=== PATIENT | male | born 1985 | race Caucasian/White ===

== ENCOUNTER → 2019-12-30 | Outpatient (CLI) | payer BC | END | disposition home or self-care (01) | LOC: LABWHC1 16:02 | PROVIDERS: ATTEND Internal Medicine | DX: Z20.828 Contact with and (suspected) exposure to other viral communicable diseases (principal) | CPT/HCPCS: U0003; C9803 ==

== ENCOUNTER 2020-04-22 14:46 | Emergency (ER) | payer BC ==
[2020-04-22 16:33] LABS: Basophils % (A) 1 %; Eosinophils % (A) 0 %; HGB 16.9 gm/dL (13.0-17.5); Lymphocytes # (A) 0.6 k/uL (1.0-4.8); Lymphocytes % (A) 18 %; MCH 30.1 pg (25.0-35.0); MCHC 34.6 g/dL (31.0-37.0); MCV 86.9 fL (80.0-100.0); Mean Platelet Volume 6.9; Monocytes # (A) 0.4 k/uL (0-1.0); Monocytes % (A) 11 %; Neutrophils # (A) 2.2 k/uL (1.3-7.7); Neutrophils % (A) 67 %; Platelet Count 171 k/uL (150-450); RBC 5.64 m/uL (4.30-5.90); RDW 12.4 % (11.5-15.5); WBC 3.2 k/uL (3.8-10.6)
[2020-04-22 16:53] LABS: ALT 69 U/L (4-49); AST 56 U/L (17-59); African American GFR (CKD) >90 (>60 ml/min/1.73 sqM); Albumin 4.9 g/dL (3.5-5.0); Alkaline Phosphatase 63 U/L (38-126); Anion Gap 12 mmol/L; Blood Urea Nitrogen 15 mg/dL (9-20); C Reactive Protein 8.4 mg/L (<10.0); Calcium 8.8 mg/dL (8.4-10.2); Carbon Dioxide 24 mmol/L (22-30); Chloride 97 mmol/L (98-107); Glucose 109 mg/dL (74-99); LDH 689 U/L (313-618); Magnesium 1.8 mg/dL (1.6-2.3); Non-African American GFR(CKD) >90 (>60 ml/min/1.73 sqM); Partial Thromboplastin Time 27.5 sec (22.0-30.0); Potassium 4.6 mmol/L (3.5-5.1); Prothrombin Time 10.9 sec (9.0-12.0); Sodium 133 mmol/L (137-145); Total Bilirubin 0.6 mg/dL (0.2-1.3); Total Protein 8.4 g/dL (6.3-8.2)
--- NOTE | 2020-04-22 17:02 | XR ---
EXAMINATION TYPE: XR chest 1V portable DATE OF EXAM: 04/22/2020 COMPARISON: NONE HISTORY: Difficulty breathing TECHNIQUE: 2 views FINDINGS: Heart and mediastinum are normal. Lungs are clear. Diaphragm is normal. Bony thorax appears normal. IMPRESSION: Normal chest.
[2020-04-22 17:11] LABS: D-Dimer 1.12 mg/L FEU (<0.60)
[2020-04-22] MEDS ORDERED: ACETAMINOPHEN TAB 500 MG TAB PO STA (17:33)
--- NOTE | 2020-04-22 18:29 | ED ---
SOB HPI - General Chief Complaint: Shortness of Breath Stated Complaint: [place], COVID + Source: patient Mode of arrival: ambulatory Limitations: no limitations - History of Present Illness Initial Comments: 35-year-old male with past nuchal history of asthma, well-controlled who pr esents emergency room with report called made. Patient began having symptoms and saw Dr. Segura. Prescribed azithromycin and prednisone. Patient went yesterday and was swabbed for covid where he received positive results. Has been using his nebulizer as directed without improvement. Patient reports shortness of breath. Denies chest pain. No history of DVT or PE. Last took Sudafed at 8 AM. Admits to fevers and chills. Positive for body aches. Denies any nausea, vomiting or diarrhea. No other alleviating, precipitating or modifying factors - Related Data Home Medications Medication Instructions Recorded Confirmed Albuterol Nebulized [Ventolin 2.5 mg INHALATION RT-Q4H PRN 04/22/20 04/22/20 Nebulized] Allergies Allergy/AdvReac Type Severity Reaction Status Date / Time animal dander Allergy Rash/Hives Verified 04/22/20 16:50 Review of Systems ROS Statement: Those systems with pertinent positive or pertinent negative responses have been documented in the HPI. ROS Other: All systems not noted in ROS Statement are negative. Past Medical History Past Medical History: Asthma, Sleep Apnea/CPAP/BIPAP History of Any Multi-Drug Resistant Organisms: None Reported Past Surgical History: No Surgical Hx Reported Past Psychological History: No Psychological Hx Reported Smoking Status: Never smoker Past Alcohol Use History: None Reported Past Drug Use History: None Reported General Exam Limitations: no limitations Course Vital Signs 04/22/20 04/22/20 04/22/20 15:23 16:26 17:00 Temperature 102.6 F H 102.5 F H Pulse Rate 101 H 87 Respiratory 19 18 18 Rate Blood Pressure 103/61 O2 Sat by Pulse 96 97 97 Oximetry 04/22/20 04/22/20 18:00 21:53 Temperature 99.4 F 98.4 F Pulse Rate 80 75 Respiratory 18 20 Rate Blood Pressure 125/64 129/69 O2 Sat by Pulse 97 96 Oximetry Medical Decision Making - Medical Decision Making Upon arrival patient is placed into room 10. A thorough history and physical exam is performed. Patient is up to continuous pulse ox and cardiac monitoring. Patient has never been intubated for his breathing. He normally uses his inhal er only when needed. Laboratory studies are conducted. Elevated d-dimer of 1.1. Covid is detected here. Patient is sent for a CTA of his chest which demonstrates no evidence of pulmonary embolism. Interstitial and patchy nodular infiltrate of the lungs. Patient does not demonstrate any hypoxia. He did agree to BAM infusion. Patient is to continue the last 2 days of his steroids. He uses nebulizer as needed every 4 hours. Follow up with his doctor in 2-4 days. Return to the emergency room for any new or worsening symptoms. Patient was discharged in stable condition - Lab Data Result diagrams: 04/22/20 16:24 04/22/20 16:24 Lab Results 04/22/20 04/22/20 04/22/20 Range/Units 16:24 16:24 16:24 WBC 3.2 L (3.8-10.6) k/uL RBC 5.64 (4.30-5.90) m/uL Hgb 16.9 (13.0-17.5) gm/dL Hct 49.0 (39.0-53.0) % MCV 86.9 (80.0-100.0) fL MCH 30.1 (25.0-35.0) pg MCHC 34.6 (31.0-37.0) g/dL RDW 12.4 (11.5-15.5) % Plt Count 171 (150-450) k/uL MPV 6.9 Neutrophils % 67 % Lymphocytes % 18 % Monocytes % 11 % Eosinophils % 0 % Basophils % 1 % Neutrophils # 2.2 (1.3-7.7) k/uL Lymphocytes # 0.6 L (1.0-4.8) k/uL Monocytes # 0.4 (0-1.0) k/uL Eosinophils # 0.0 (0-0.7) k/uL Basophils # 0.0 (0-0.2) k/uL PT 10.9 (9.0-12.0) sec INR 1.0 (<1.2) APTT 27.5 (22.0-30.0) sec D-Dimer 1.12 H (<0.60) mg/L FEU Sodium 133 L (137-145) mmol/L Potassium 4.6 (3.5-5.1) mmol/L Chloride 97 L (98-107) mmol/L Carbon Dioxide 24 (22-30) mmol/L Anion Gap 12 mmol/L BUN 15 (9-20) mg/dL Creatinine 0.97 (0.66-1.25) mg/dL Est GFR (CKD-EPI)AfAm >90 (>60 ml/min/1.73 sqM) Est GFR (CKD-EPI)NonAf >90 (>60 ml/min/1.73 sqM) Glucose 109 H (74-99) mg/dL Plasma Lactic Acid Hal (0.7-2.0) mmol/L Calcium 8.8 (8.4-10.2) mg/dL Magnesium 1.8 (1.6-2.3) mg/dL Total Bilirubin 0.6 (0.2-1.3) mg/dL AST 56 (17-59) U/L ALT 69 H (4-49) U/L Alkaline Phosphatase 63 (38-126) U/L Lactate Dehydrogenase 689 H (313-618) U/L C-Reactive Protein 8.4 (<10.0) mg/L Total Protein 8.4 H (6.3-8.2) g/dL Albumin 4.9 (3.5-5.0) g/dL Coronavirus (PCR) (Not Detectd) 04/22/20 04/22/20 Range/Units 16:24 16:24 WBC (3.8-10.6) k/uL RBC (4.30-5.90) m/uL Hgb (13.0-17.5) gm/dL Hct (39.0-53.0) % MCV (80.0-100.0) fL MCH (25.0-35.0) pg MCHC (31.0-37.0) g/dL RDW (11.5-15.5) % Plt Count (150-450) k/uL MPV Neutrophils % % Lymphocytes % % Monocytes % % Eosinophils % % Basophils % % Neutrophils # (1.3-7.7) k/uL Lymphocytes # (1.0-4.8) k/uL Monocytes # (0-1.0) k/uL Eosinophils # (0-0.7) k/uL Basophils # (0-0.2) k/uL PT (9.0-12.0) sec INR (<1.2) APTT (22.0-30.0) sec D-Dimer (<0.60) mg/L FEU Sodium (137-145) mmol/L Potassium (3.5-5.1) mmol/L Chloride (98-107) mmol/L Carbon Dioxide (22-30) mmol/L Anion Gap mmol/L BUN (9-20) mg/dL Creatinine (0.66-1.25) mg/dL Est GFR (CKD-EPI)AfAm (>60 ml/min/1.73 sqM) Est GFR (CKD-EPI)NonAf (>60 ml/min/1.73 sqM) Glucose (74-99) mg/dL Plasma Lactic Acid Hal 1.0 (0.7-2.0) mmol/L Calcium (8.4-10.2) mg/dL Magnesium (1.6-2.3) mg/dL Total Bilirubin (0.2-1.3) mg/dL AST (17-59) U/L ALT (4-49) U/L Alkaline Phosphatase (38-126) U/L Lactate Dehydrogenase (313-618) U/L C-Reactive Protein (<10.0) mg/L Total Protein (6.3-8.2) g/dL Albumin (3.5-5.0) g/dL Coronavirus (PCR) Detected A (Not Detectd) - EKG Data EKG Comments: EKG demonstrates a normal sinus rhythm with a ventricular rate of 93. Urine of 148. QRS 86. QTC of 407. No acute ST segment elevations or depressions concerning for ischemic changes Disposition Clinical Impression: COVID-19 Disposition: HOME SELF-CARE Condition: Stable Instructions (If sedation given, give patient instructions): Coronavirus Disease 2019 (COVID-19) Additional Instructions: Please follow up with your PCP in 2-4 days. Take the remaining 2 days of your prednisone. Use your nebulizer every 4 hours. Return to the ED for any new or worsening symptoms. Is patient prescribed a controlled substance at d/c from ED?: No Referrals: Morenita Segura MD [Primary Care Provider] - 1-2 days Time of Disposition: 19:41
--- NOTE | 2020-04-22 18:33 | CT ---
EXAMINATION TYPE: CT chest angio for PE DATE OF EXAM: 04/22/2020 COMPARISON: None HISTORY: Elevated d dimer, Covid + CT DLP: 869.4 mGycm Automated exposure control for dose reduction was used. CONTRAST: Performed with IV Contrast, patient injected with 100 mL of Isovue 370. Images obtained from the thoracic inlet to the diaphragm with IV contrast and 3-D post processed imag es. There is a diffuse nodular and interstitial infiltrate throughout the lungs. There are multiple low d ensity nodules that measure up to 1.5 cm. There is no mediastinal adenopathy. Thoracic aorta is intac t. There is no aneurysm or dissection. Heart is top normal in size. There is no pericardial effusion. There is no pleural effusion. There is some fatty infiltration of the liver. There is normal contrast opacification of the pulmonary arteries. Thoracic spine is intact. Sternum i s intact. IMPRESSION: No evidence of pulmonary embolism. Interstitial and patchy nodular infiltrate throughout the lungs. This is likely related to pneumonia. No cavitation seen to suggest septic emboli.
[2020-04-22] MEDS ORDERED: BAMLANIVIMAB 700 MG in SODIUM CHLORIDE 0.9% 50 ML IVPB ONE (20:00)
[2020-04-22 21:58] VITALS: BP 129/69; PULSE 75; RESP 20; TEMP 98.4
== END 2020-04-22 21:53 | disposition home or self-care (01) ==
LOC: EC 14:46
DX: U07.1 COVID-19 (principal); R79.89 Other specified abnormal findings of blood chemistry; R91.1 Solitary pulmonary nodule; J45.909 Unspecified asthma, uncomplicated; G47.30 Sleep apnea, unspecified; Z91.048 Other nonmedicinal substance allergy status; Z99.89 Dependence on other enabling machines and devices
CPT/HCPCS: 36415; 93005; 85379; 80053; 83605; 83615; 83735; 85025; 85610; 85730; 86140; 87635; 71045; 71275; 99285; 96365; Q9967; Q0239

== ENCOUNTER → 2023-07-17 | Outpatient (CLI) | payer BC ==
--- NOTE | 2023-07-18 07:46 | XR ---
EXAMINATION TYPE: XR toes RT DATE OF EXAM: 07/17/2023 COMPARISON: NONE HISTORY: Pain great toe TECHNIQUE: Two views are submitted. FINDINGS: The osseous structures are intact. There is no acute fracture or dislocation. Joint spaces are p reserved. Moderate first MTP joint arthropathy with subtle hallux valgus deformity. IMPRESSION: 1. Moderate first MTP joint arthropathy.
== END | disposition home or self-care (01) ==
LOC: RADXRYALE 16:44
PROVIDERS: ATTEND Internal Medicine
DX: M19.071 Primary osteoarthritis, right ankle and foot (principal)